=== PATIENT | female | born 1985 | race Caucasian/White ===

== ENCOUNTER 2019-10-21 06:48 | Day surgery (SDC) | payer BC ==
[2019-10-21] MEDS ORDERED: Lactated Ringers 1,000 ML IV SCH (07:00)
[2019-10-21] MEDS ORDERED: Doxycycline 100 MG Cap PO SCH (07:00)
[2019-10-21] MEDS ORDERED: Lidocaine 1%/Sod Bicarbonate in NS 8.4% 1 ML Syringe IDERM PRN (07:00)
[2019-10-21] MEDS ORDERED: Sodium Chloride 0.9% 10 ML Syringe FLUSH PRN (07:00)
--- NOTE | 2019-10-21 07:21 | PCM.PREANE ---
Preanesthetic Assessment - Procedure Proposed Procedure: suctin d and c - Anesthesia/Transfusion/Family Hx Anesthesia History: Prior Anesthesia Without Reaction Family History of Anesthesia Reaction: No Transfusion History: No Prior Transfusion(s) - Review of Systems General: No Symptoms Pulmonary: No Symptoms Cardiovascular: No Symptoms Gastrointestinal: Abdominal Pain (weeks) Neurological: No Symptoms Other: Reports: None - Physical Assessment NPO Status Date: 10/20/19 NPO Status Time: 22:00 Vital Signs: Last Vital Signs Temp 98.4 F 10/21/19 07:00 Pulse 61 10/21/19 07:00 Resp 16 10/21/19 07:00 BP 106/62 10/21/19 07:00 Pulse Ox 99 10/21/19 07:00 Height: 5 ft 7 in Weight: 57.153 kg ASA Class: 1 Mental Status: Alert & Oriented x3 Airway Class: Mallampati = 1 Dentition: Reports: Normal Dentition Thyro-Mental Finger Breadths: 3 Mouth Opening Finger Breadths: 3 ROM/Head Extension: Full Lungs: Clear to Auscultation, Normal Respiratory Effort Cardiovascular: Regular Rate, Regular Rhythm - Lab Values: Laboratory Last Values Urine Color Yellow (Yellow) 10/21/19 06:50 Urine Appearance Clear (Clear) 10/21/19 06:50 Urine pH 7.0 (5.0-8.0) 10/21/19 06:50 Ur Specific Fisher 1.025 (1.005-1.030) 10/21/19 06:50 Urine Protein Negative (Negative) 10/21/19 06:50 Urine Glucose (UA) Negative (Negative) 10/21/19 06:50 Urine Ketones Negative (Negative) 10/21/19 06:50 Urine Occult Blood Negative (Negative) 10/21/19 06:50 Urine Nitrite Negative (Negative) 10/21/19 06:50 Urine Bilirubin Negative (Negative) 10/21/19 06:50 Urine Urobilinogen 0.2 (0.2-1.0) 10/21/19 06:50 Ur Leukocyte Esterase Negative (Negative) 10/21/19 06:50 SARS Virus RNA (PCR) Negative (NEGATIVE) 10/20/19 14:08 - Allergies Allergies/Adverse Reactions: Allergies Allergy/AdvReac Type Severity Reaction Status Date / Time amoxicillin Allergy Hives Verified 10/20/19 15:15 Sulfa (Sulfonamide Allergy Hives Verified 10/20/19 15:15 Antibiotics) - Blood Blood Available: No - Acknowledgements Anesthesia Type Planned: General Anesthesia, MAC Pt an Appropriate Candidate for the Planned Anesthesia: Yes Alternatives and Risks of Anesthesia Discussed w Pt/Guardian: Yes Pt/Guardian Understands and Agrees with Anesthesia Plan: Yes PreAnesthesia Questionnaire - Past Health History Medical/Surgical History: Denies Medical/Surgical History HEENT History: Reports: None Cardiovascular History: Reports: Other (See Below) (heart palpitations as a child- all negative) Respiratory History: Reports: None 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 [No Known Home Meds] 10/20/19 [History] - CURRENT (IN HOUSE) MEDS Current Meds: Current Medications Doxycycline Hyclate (Vibramycin) 200 mg PO ONETIME KELSY Stop: 10/21/19 09:00 Last Admin: 10/21/19 06:52 Dose: 200 mg Documented by: Lactated Ringer's (Ringers, Lactated) 1,000 mls @ 125 mls/hr IV ASDIRECTED KELSY Stop: 10/21/19 23:00 Lidocaine/Sodium Bicarbonate (Buffered Lidocaine 1% In Ns 8.4%) 0.25 ml IDERM ONETIME PRN PRN Reason: Prior to IV Start Stop: 10/21/19 18:00 Sodium Chloride (Saline Flush) 10 ml FLUSH ASDIRECTED PRN PRN Reason: Keep Vein Open Stop: 10/21/19 18:00
[2019-10-21] MEDS ORDERED: Midazolam 1 MG/ML 2 ML SDV ONE (07:28)
[2019-10-21] MEDS ORDERED: fentaNYL 100 MCG/2 ML SDV ONE (07:28)
[2019-10-21] MEDS ORDERED: Propofol 200 MG/20 ML SDV ONE (07:28)
[2019-10-21] MEDS ORDERED: Lidocaine 1% 4 ML ONE (07:28)
[2019-10-21] MEDS ORDERED: Ketamine 500 mg/10 ML MDV ONE (07:40)
[2019-10-21] MEDS ORDERED: Ondansetron 4 MG/2 ML SDV ONE (07:51)
[2019-10-21] MEDS ORDERED: Succinylcholine/Sod PF 100 MG/5 ML SYRINGE IV ONE (08:04)
[2019-10-21] MEDS ORDERED: Dexamethasone 4 MG/ML 5 ML MDV ONE (08:12)
[2019-10-21] MEDS ORDERED: Lactated Ringers 1,000 ML ONE (08:18)
[2019-10-21] MEDS ORDERED: Ketorolac 30 MG/ML SDV ONE (08:25)
[2019-10-21] MEDS ORDERED: Methylergonovine 0.2 MG/1 ML Amp ONE (08:27)
[2019-10-21] MEDS ORDERED: fentaNYL 100 MCG/2 ML SDV IVPUSH PRN (08:51)
[2019-10-21] MEDS ORDERED: HYDROmorphone 0.5 MG/0.5 ML Syringe IVPUSH PRN (08:51)
[2019-10-21] MEDS ORDERED: Ondansetron 4 MG/2 ML SDV IVPUSH PRN (08:51)
--- NOTE | 2019-10-21 08:52 | PCM.POSTAN ---
POST ANESTHESIA ASSESSMENT - MENTAL STATUS Mental Status: Alert, Oriented - VITAL SIGNS Vital Signs: Last Vital Signs Temp 98.4 F 10/21/19 07:00 Pulse 61 10/21/19 07:00 Resp 16 10/21/19 07:00 BP 106/62 10/21/19 07:00 Pulse Ox 99 10/21/19 07:00 0846 78 18 97.6 112/73 99% - RESPIRATORY Respiratory Status: Respiratory Rate WNL, Airway Patent, O2 Saturation Stable, Supplemental Oxygen - CARDIOVASCULAR CV Status: Pulse Rate WNL, Blood Pressure Stable - GASTROINTESTINAL GI Status: No Symptoms - PAIN Pain Score: 0 - POST OP HYDRATION Hydration Status: Adequate & Stable
--- NOTE | 2019-10-21 08:59 | PCM.OPNOTE ---
- General Post-Op/Procedure Note Date of Surgery/Procedure: 10/21/19 Operative Procedure(s): Suction dilation and curettage Findings: Grossly normal-appearing cervix with uterus enlarged to 7 weeks size. Right adnexal cyst measuring approximately 5 to 6 cm on exam. Pre Op Diagnosis: Missed with anembryonic gestation Post-Op Diagnosis: Same Anesthesia Technique: General ET Tube Primary Surgeon: Alok Velasco Secondary Surgeon: Slade Whitaker Pathology: Products of conception Fluid Replacement, Intraop: 1,100 Output, Urine Amount: 0 (voided prior to procedure) EBL in mLs: 100 Complications: None Condition: Good Free Text/Narrative:: Procedure in Detail: Patient was counseled on risks, benefits and alternatives of the procedure and consents were reviewed prior to going back to the OR. She was given 200 mg of doxycycline for antibiotic prophylaxis. She was taken back to the OR and given general anesthesia with endotracheal tube that was placed without difficulty. She was placed in dorsal lithotomy position using [place] stirrups. She was prepped and draped in a normal sterile fashion. A weighted speculum was placed in the vagina and the cervix was visualized with use of a right angle retractor. The anterior lip of the cervix was grasped with a single tooth tenaculum. The cervix was serially dilated to a 23 Ur[place] dilator. The vacuum was tested and reached an appropriate suction level. A 8 mm suction curettage was then placed into the uterine cavity and suction applied. The uterine cavity was suctioned circumferentially until a good cri was felt in all directions. The tissue that was removed was sent to pathology. The procedure was complete at this time and the tenaculum was removed from the cervix and good hemostasis was noted from the tenaculum sites. All instruments were removed from the vagina. All needle and sponge counts were correct x 2. The patient was awoken and taken back to the recovery room in stable condition. She will be discharged home with methergine for uterine tone. The patient will be discharged home when she is ambulating, tolerating PO, pain is well controlled with PO medications and she is voiding normally. She will follow up in the clinic within the next 2-3 weeks. She was given strict precautions to return if she is having severe vaginal bleeding of more than 1 pad per hour for three hours, uncontrollable pain/ nausea/vomiting or if she is having a fever greater than 100.4 Arianna Velasco MD 8:58 AM 10/21/2019
--- NOTE | 2019-10-21 09:35 | PCM48HPAN ---
Post Anesthesia Note - EVALUATION WITHIN 48HRS OF ANESTHETIC Vital Signs in Normal Range: Yes Patient Participated in Evaluation: Yes Respiratory Function Stable: Yes Airway Patent: Yes Cardiovascular Function Stable: Yes Hydration Status Stable: Yes Pain Control Satisfactory: Yes Nausea and Vomiting Control Satisfactory: Yes Mental Status Recovered: Yes (no complaints) Vital Signs: Last Vital Signs Temp 98.5 F 10/21/19 09:15 Pulse 67 10/21/19 09:15 Resp 14 10/21/19 09:15 BP 110/63 10/21/19 09:15 Pulse Ox 97 10/21/19 09:15
== END 2019-10-21 10:33 | disposition home or self-care (01) ==
LOC: JD.SDS 06:48
PROVIDERS: ATTEND Obstetrics & Gynecology
DX: O02.0 Blighted ovum and nonhydatidiform mole (principal); N83.8 Other noninflammatory disorders of ovary, fallopian tube and broad ligament; Z88.0 Allergy status to penicillin; Z88.2 Allergy status to sulfonamides
CPT/HCPCS: 59820; 81003; 87635; A9270; J0330; J1100; J1885; J2001; J2210; J2250; J2704; J7120; 01965; J2405; J3010; U0002

== ENCOUNTER 2020-09-21 00:12 | Inpatient (IN) | payer BC ==
--- NOTE | 2020-09-21 00:50 | PCM.PREANE ---
Preanesthetic Assessment - Procedure Proposed Procedure: Epidural - Anesthesia/Transfusion/Family Hx Anesthesia History: Prior Anesthesia Without Reaction Family History of Anesthesia Reaction: No Transfusion History: No Prior Transfusion(s) Intubation History: Unknown - Review of Systems General: No Symptoms Pulmonary: No Symptoms Cardiovascular: No Symptoms Gastrointestinal: No Symptoms (GERD), Nausea Neurological: No Symptoms Other: Reports: None - Physical Assessment NPO Status Date: 09/20/20 NPO Status Time: 18:00 Vital Signs: HR: 96 Sat: 99% Temp: 100.9 Resp: 20 B/P: 127/92 Height: 1.71 m Weight: 76.657 kg ASA Class: 2 Mental Status: Alert & Oriented x3 Airway Class: Mallampati = 2 Dentition: Reports: Normal Dentition, [place] Thyro-Mental Finger Breadths: 3 Mouth Opening Finger Breadths: 3 ROM/Head Extension: Full Lungs: Clear to Auscultation, Normal Respiratory Effort Cardiovascular: Regular Rate, Regular Rhythm, No Murmurs - Lab Values: All labs reviewed and noted and within acceptable ranges to proceed with ep idural if desired. - Allergies Allergies/Adverse Reactions: Allergies Allergy/AdvReac Type Severity Reaction Status Date / Time amoxicillin Allergy Hives Verified 09/21/20 00:21 Sulfa (Sulfonamide Allergy Hives Verified 09/21/20 00:21 Antibiotics) - Anesthesia Plan Pre-Op Medication Ordered: None - Acknowledgements Anesthesia Type Planned: Epidural Pt an Appropriate Candidate for the Planned Anesthesia: Yes Alternatives and Risks of Anesthesia Discussed w Pt/Guardian: Yes Pt/Guardian Understands and Agrees with Anesthesia Plan: Yes PreAnesthesia Questionnaire - Past Health History Medical/Surgical History: Denies Medical/Surgical History HEENT History: Reports: None Cardiovascular History: Reports: Other (See Below) (heart palpitations as a child- all negative) Respiratory History: Reports: None 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
[2020-09-21] MEDS ORDERED: Nalbuphine 10 MG/1 ML Vial IVPUSH PRN (00:56)
[2020-09-21] MEDS ORDERED: Calcium Carbonate 500 MG Tab.Chew PO PRN ×2 (00:56→11:43)
[2020-09-21] MEDS ORDERED: Acetaminophen 325 MG Tab PO PRN ×2 (00:56→20:01)
[2020-09-21] MEDS ORDERED: Sodium Chloride 0.9% 10 ML Syringe FLUSH PRN (00:56)
[2020-09-21] MEDS ORDERED: fentaNYL 100 MCG/2 ML SDV EPIDUR PRN (01:00)
[2020-09-21] MEDS ORDERED: Oxytocin/Lactated Ringers 10 UNIT/1,000 ML BAG IV SCH ×3 (01:00→20:01)
[2020-09-21] MEDS ORDERED: ePHEDrine 50 MG/ML SDV IVPUSH PRN (01:00)
[2020-09-21] MEDS ORDERED: Ondansetron 4 MG/2 ML SDV IVPUSH PRN (01:00)
[2020-09-21] MEDS: Lactated Ringers 1,000 ML IV SCH ×4 (04:47→10:56)
--- NOTE | 2020-09-21 05:57 | PCM.LDHP ---
L&D History of Present Illness - General Date of Service: 09/21/20 Admit Problem/Dx: Patient Status Order with Admit Dx/Problem 09/21/20 00:21 Patient Status [ADT] Routine 09/21/20 00:56 Patient Status [ADT] Routine Admission Diagnosis/Problem Admission Diagnosis/Problem - History of Present Illness Introduction:: 34 year old female at 40w3 by LMP cw 1st trimester ultrasound presented for SROM clear fluid at 10pm. PNC with Dr. Velasco complicated by a posterior fibroid, abnormal one hour with normal three hour Labs reviewed and on chart on . A+/Imm/GBS neg - Related Data Allergies/Adverse Reactions: Allergies Allergy/AdvReac Type Severity Reaction Status Date / Time amoxicillin Allergy Hives Verified 09/21/20 00:21 Sulfa (Sulfonamide Allergy Hives Verified 09/21/20 00:21 Antibiotics) Home Medications: Home Meds Ondansetron [Zofran ODT] 4 mg PO Q6H PRN #30 tab.dis 10/21/19 [Rx] Comb No.42/Folic Acid [Prena1 Chew Tablet] 1 piece CHEW DAILY 09/21/20 [History] Past Medical History - Past Health History Medical/Surgical History: Denies Medical/Surgical History HEENT History: Reports: None Cardiovascular History: Reports: Other (See Below) Respiratory History: Reports: None 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: , Spontaneous Oncologic (Cancer) History: Reports: None - Past Surgical History HEENT Surgical History: Reports: Oral Surgery Social & Family History - Family History Family Medical History: No Pertinent Family History - Tobacco Use Tobacco Use Status *Q: Never Tobacco User Second Hand Smoke Exposure: No - Caffeine Use Caffeine Use: Reports: Tea - Recreational Drug Use Recreational Drug Use: No H&P Review of Systems - Review of Systems: Review Of Systems: See Below General: Reports: No Symptoms HEENT: Reports: No Symptoms Pulmonary: Reports: No Symptoms Cardiovascular: Reports: No Symptoms Gastrointestinal: Reports: No Symptoms Genitourinary: Reports: No Symptoms Musculoskeletal: Reports: No Symptoms Skin: Reports: No Symptoms Psychiatric: Reports: No Symptoms Neurological: Reports: No Symptoms Hematologic/Lymphatic: Reports: No Symptoms Immunologic: Reports: No Symptoms L&D Exam - Exam Exam: See Below - Vital Signs Vital Signs: Last Vital Signs Temp 36.4 C 09/21/20 03:17 Pulse 87 09/21/20 03:17 Resp 16 09/21/20 03:17 BP 129/80 09/21/20 03:17 Pulse Ox 100 09/21/20 03:17 Weight: 76.657 kg - OB Specific Contraction Intensity: Mild to Moderate Presentation: Vertex - Sood Score Sood Score Cervix Position: Anterior Sood Score Effacement: >80% Sood Score Dilation: 3-4 cm Sood Score Infant's Station: +1, +2 - Exam General: Alert, Oriented HEENT: PERRLA, Conjunctiva Clear, EACs Clear, EOMI, Hearing Intact, Mucosa Moist & [place], Nares Patent, Normal Nasal Septum, Posterior Pharynx Clear, TMs Clear Neck: Trachea Midline Lungs: Normal Respiratory Effort Cardiovascular: Regular Rate, Regular Rhythm GI/Abdominal Exam: Normal Bowel Sounds, Soft, Non-Tender, No Organomegaly, No D istention Back Exam: Normal Inspection, Full Range of Motion Extremities: Normal Inspection, Normal Range of Motion, Non-Tender, No Pedal Edema, Normal Capillary Refill Skin: Warm, Dry, Intact Neurological: Cranial Nerves Intact, Reflexes Equal Bilateral Psychiatric: Alert, Normal Affect, Normal Mood - Patient Data Lab Results Last 24 hrs: Laboratory Results - last 24 hr 09/21/20 09/21/20 09/21/20 Range/Units 01:30 01:59 01:59 WBC 16.54 H (3.98-10.04) K/mm3 RBC 4.17 (3.98-5.22) M/mm3 Hgb 12.6 (11.2-15.7) gm/dl Hct 37.9 (34.1-44.9) % MCV 90.9 (79.4-94.8) fl MCH 30.2 (25.6-32.2) pg MCHC 33.2 (32.2-35.5) g/dl RDW Std Deviation 42.4 (36.4-46.3) fL Plt Count 198 (182-369) K/mm3 MPV 10.9 (9.4-12.3) fl Neut % (Auto) 85.9 H (34.0-71.1) % Lymph % (Auto) 8.0 L (19.3-51.7) % [place] % (Auto) 5.6 (4.7-12.5) % Eos % (Auto) 0.2 L (0.7-5.8) Baso % (Auto) 0.1 (0.1-1.2) % Neut # (Auto) 14.20 H (1.56-6.13) K/mm3 Lymph # (Auto) 1.33 (1.18-3.74) K/mm3 [place] # (Auto) 0.92 H (0.24-0.36) K/mm3 Eos # (Auto) 0.03 L (0.04-0.36) K/mm3 Baso # (Auto) 0.02 (0.01-0.08) K/mm3 Manual Slide Review Abnormal smear SARS-CoV-2 RNA (EDIE) Negative (NEGATIVE) Blood Type A POSITIVE Gel Antibody Screen Negative Result Diagrams: 09/21/20 01:59 Problem List Initiated/Reviewed/Updated: Yes Orders Last 24hrs: Active Orders 24 hr Category Date Time Status Patient Status [ADT] Routine ADT 09/21/20 00:21 Active Patient Status [ADT] Routine ADT 09/21/20 00:56 Active Activity as Tolerated [RC] PFP Care 09/21/20 00:56 Active Communication Order [RC] ASDIRECTED Care 09/21/20 00:56 Active Heart Tones [RC] ASDIRECTED Care 09/21/20 00:57 Active Non Stress Test [RC] PER UNIT ROUTINE Care 09/21/20 00:21 Active Non Stress Test [RC] PER UNIT ROUTINE Care 09/21/20 00:56 Active Notify Provider [RC] ASDIRECTED Care 09/21/20 01:00 Active Notify Provider [RC] PFP Care 09/21/20 00:56 Active Notify Provider [RC] PRN Care 09/21/20 00:56 Active Oxygen Therapy [RC] ASDIRECTED Care 09/21/20 01:00 Active Peripheral IV Care [RC] . DIRECTED Care 09/21/20 00:57 Active Pulse Oximetry [RC] ASDIRECTED Care 09/21/20 01:00 Active Vital Signs [RC] PER UNIT ROUTINE Care 09/21/20 00:21 Active Vital Signs [RC] PER UNIT ROUTINE Care 09/21/20 00:56 Active AMNISURE RUPTURE MEMBRAN [BF] Stat Lab 09/21/20 00:21 Ordered HEPATITIS C ANTIBODY [CHEM] Stat Lab 09/21/20 01:59 Received RAPID PLASMA REAGIN,RPR [CHEM] Routine Lab 09/21/20 01:59 Received Acetaminophen [TylenoL] Med 09/21/20 00:56 Active 650 mg PO Q4H PRN Bupivacaine/fentaNYL/NS [fentaNYL/Bupivacaine/NS 2 MCG- Med 09/21/20 01:00 Active 0.125% 100 ML] 100 ml EPIDUR ASDIRECTED Calcium Carbonate [Tums] Med 09/21/20 00:56 Active 1,000 mg PO Q2H PRN Lactated Ringers [Ringers, Lactated] 1,000 ml Med 09/21/20 01:00 Active IV ASDIRECTED Nalbuphine [Nubain] Med 09/21/20 00:56 Active 10 mg IVPUSH Q2H PRN Ondansetron [Zofran] Med 09/21/20 01:00 Active 4 mg IVPUSH ONETIME PRN Oxytocin/Lactated Ringers [Pitocin in LR 10 Units/1,000 Med 09/21/20 01:00 Active ML] 10 unit in 1,000 ml IV .CONTINUOUS Oxytocin/Lactated Ringers [Pitocin in LR 10 Units/1,000 Med 09/21/20 01:00 Active ML] 10 unit in 1,000 ml IV TITRATE Phenylephrine HCl In 0.9% NaCl [Phenylephrine 1 MG/10 Med 09/21/20 01:00 Active ML-NS] 0.1 mg IVPUSH Q10M PRN Sodium Chloride 0.9% [Saline Flush] Med 09/21/20 00:56 Active 10 ml FLUSH ASDIRECTED PRN ePHEDrine [ePHEDrine sulfate] Med 09/21/20 01:00 Active 5 mg IVPUSH ASDIRECTED PRN fentaNYL [Sublimaze] Med 09/21/20 01:00 Active 100 mcg EPIDUR Q3H PRN Electronic Heart Tones Ext w TOCO [WOMSER] Ot 09/21/20 00:56 Ordered Routine Electronic Heart Tones Internal [WOMSER] Per Unit Ot 09/21/20 00:56 Ordered Routine Peripheral IV Insertion Adult [OM.PC] Routine Oth 09/21/20 00:56 Ordered Resuscitation Status Routine Resus Stat 09/21/20 00:56 Ordered Medication Orders Acetaminophen (Acetaminophen 325 Mg Tab) 650 mg PO Q4H PRN PRN Reason: Pain (Mild 1-3) and fever Calcium Carbonate/Glycine (Calcium Carbonate 500 Mg Tab.Chew) 1,000 mg PO Q2H PRN PRN Reason: Indigestion Ephedrine Sulfate (Ephedrine 50 Mg/Ml Sdv) 5 mg IVPUSH ASDIRECTED PRN PRN Reason: Hypotension Fentanyl (Fentanyl 100 Mcg/2 Ml Sdv) 100 mcg EPIDUR Q3H PRN PRN Reason: Pain Fentanyl/Bupivacaine HCl (Bupivacaine/Fentanyl/Ns 100 Ml Bag) 100 ml EPIDUR ASDIRECTED KELSY Lactated Ringer's (Ringers, Lactated) 1,000 mls @ 100 mls/hr IV ASDIRECTED KELSY Last Admin: 09/21/20 04:47 Dose: 100 mls/hr Documented by: DEMAR Oxytocin/Lactated Ringer's (Pitocin In Lr 10 Units/1,000 Ml) 10 unit in 1,000 mls @ 500 mls/hr IV .CONTINUOUS KELSY Oxytocin/Lactated Ringer's (Pitocin In Lr 10 Units/1,000 Ml) 10 unit in 1,000 mls @ 12 mls/hr IV TITRATE KELSY; Protocol Last Titration: 09/21/20 05:20 Dose: 4 munits/min, 24 mls/hr Documented by: Admin: 09/21/20 04:47 Dose: 2 munits/min, 12 mls/hr Documented by: DEMAR Miscellaneous Medication (Phenylephrine Hcl In 0.9% Nacl 1 Mg/10 Ml Syringe) 0.1 mg IVPUSH Q10M PRN PRN Reason: Hypotension Nalbuphine HCl (Nalbuphine 10 Mg/1 Ml Vial) 10 mg IVPUSH Q2H PRN PRN Reason: Pain Ondansetron HCl (Ondansetron 4 Mg/2 Ml Sdv) 4 mg IVPUSH ONETIME PRN PRN Reason: Nausea/Vomiting Sodium Chloride (Sodium Chloride 0.9% 10 Ml Syringe) 10 ml FLUSH ASDIRECTED PRN PRN Reason: Keep Vein Open Assessment/Plan Comment:: Term SROM. Pitocin, epidural prn. Labs pending. Anticipate . Discussed with Dr. Velasco who is global head advertiser solutions now and will assume care.
[2020-09-21] MEDS: Bupivacaine/fentaNYL/NS 100 ML Bag EPIDUR SCH ×2 (07:41→16:26)
[2020-09-21] MEDS ORDERED: ceFAZolin 2 GM in Premix Bag 1 BAG IV ONE (12:58)
--- NOTE | 2020-09-21 13:37 | PCM.PNLD ---
Labor Progress Note - VS & Meds Vital Signs: Last Vital Signs Temp 36.4 C 09/21/20 03:17 Pulse 87 09/21/20 03:17 Resp 16 09/21/20 03:17 BP 129/80 09/21/20 03:17 Pulse Ox 100 09/21/20 03:17 Active Medications: Current Medications Acetaminophen (Acetaminophen 325 Mg Tab) 650 mg PO Q4H PRN PRN Reason: Pain (Mild 1-3) and fever Calcium Carbonate/Glycine (Calcium Carbonate 500 Mg Tab.Chew) 1,000 mg PO Q2H PRN PRN Reason: Indigestion Last Admin: 09/21/20 11:55 Dose: 1,000 mg Documented by: Ephedrine Sulfate (Ephedrine 50 Mg/Ml Sdv) 5 mg IVPUSH ASDIRECTED PRN PRN Reason: Hypotension Fentanyl (Fentanyl 100 Mcg/2 Ml Sdv) 100 mcg EPIDUR Q3H PRN PRN Reason: Pain Last Admin: 09/21/20 07:40 Dose: 100 mcg Documented by: Fentanyl/Bupivacaine HCl (Bupivacaine/Fentanyl/Ns 100 Ml Bag) 100 ml EPIDUR ASDIRECTED KELSY Last Admin: 09/21/20 07:41 Dose: 100 ml Documented by: Lactated Ringer's (Ringers, Lactated) 1,000 mls @ 100 mls/hr IV ASDIRECTED KELSY Last Admin: 09/21/20 10:56 Dose: 100 mls/hr Documented by: Oxytocin/Lactated Ringer's (Pitocin In Lr 10 Units/1,000 Ml) 10 unit in 1,000 mls @ 500 mls/hr IV .CONTINUOUS KELSY Oxytocin/Lactated Ringer's (Pitocin In Lr 10 Units/1,000 Ml) 10 unit in 1,000 mls @ 12 mls/hr IV TITRATE KELSY; Protocol Last Titration: 09/21/20 11:08 Dose: 3 munits/min, 18 mls/hr Documented by: Gentamicin Sulfate 380 mg/ (Sodium Chloride) 109.5 mls @ 109.5 mls/hr IV ONETIME ONE Stop: 09/21/20 14:29 Miscellaneous Medication (Phenylephrine Hcl In 0.9% Nacl 1 Mg/10 Ml Syringe) 0.1 mg IVPUSH Q10M PRN PRN Reason: Hypotension Nalbuphine HCl (Nalbuphine 10 Mg/1 Ml Vial) 10 mg IVPUSH Q2H PRN PRN Reason: Pain Ondansetron HCl (Ondansetron 4 Mg/2 Ml Sdv) 4 mg IVPUSH ONETIME PRN PRN Reason: Nausea/Vomiting Last Admin: 09/21/20 11:55 Dose: 4 mg Documented by: Sodium Chloride (Sodium Chloride 0.9% 10 Ml Syringe) 10 ml FLUSH ASDIRECTED PRN PRN Reason: Keep Vein Open Discontinued Medications Gentamicin Sulfate (Pharmacy To Dose - Gentamicin) 1 dose .XX ASDIRECTED ONE Stop: 09/21/20 13:31 Cefazolin Sodium/Dextrose 2 gm (/ Premix) 50 mls @ 100 mls/hr IV ONETIME ONE Stop: 09/21/20 13:27 Last Admin: 09/21/20 13:12 Dose: 100 mls/hr Documented by: - Uterine Contractions Uterine Monitoring Mode: External [place] Contraction Frequency (min): 5-7 Contraction Duration (sec): 60-75 Contraction Intensity: Moderate Uterine Resting Tone: Soft - Monitoring Monitor Mode: Doppler/Auscultation Heart Rate (FHR) Baseline: 150 Heart Rate (FHR) Per Doppler: 150 Heart Rate (FHR) Variability: Moderate (6-25 bmp) Accelerations: Present, 15x15 Decelerations: Late (recurrent while laying on back, improved on hands and knees) Strip Review: Category II - Vaginal Exam Dilation (cm): 5 Effacement (Percent): 90 Station: 0 Cervical Position: Anterior Sterile Vaginal Exam Performed By: Alok Velasco - Labor Progress (Free Text) Labor Progress: Kayla Chase is a 34-year-old -0-1-0 female at 40 weeks 3 days (ALESHIA 09/18/2020) with spontaneous rupture of membranes and new onset maternal fever with temperature of 100.9 F and increase in heart rate to 150s and maternal tachycardia and suspected chorioamnionitis * Start patient on Ancef 2 g IV every 8 hours and gentamicin 5 mg/kg every 24 hours for treatment of chorioamnionitis. We will continue this until time of delivery. Give patient test dose of Ancef prior to full dosing of Ancef given history of hives with amoxicillin as a child. * Continue Pitocin for augmentation of labor, continue increased dose to increase frequency of contractions * Routine vitals * We will plan to recheck cervix in 2 hours to check for change. If no change at that time then we will place a intrauterine pressure catheter to more closely monitor contractions and strength of contractions * Patient may have small amount of food while in labor * Epidural working well for patient and not having any pain at this time * Anticipate vaginal delivery unless otherwise indicated Alok Velasco MD 1:37 PM 09/13/2020
[2020-09-21] MEDS ORDERED: Bupivacaine 0.25% 10 ML SDV ONE (17:00)
--- NOTE | 2020-09-21 19:08 | PCM.DEL ---
L & D Note - General Info Date of Service: 09/21/20 Mother's Due Date: 09/18/20 - Delivery Note Labor: Spontaneous, Augmented by Oxytocin Delivery Outcome: Livebirth Infant Delivery Method: Spontaneous Vaginal Delivery-Single Presentation: Left Occiput Anterior (JANELLE) Nuchal Cord: None Prep: Povidone-Iodine (Betadine Anesthesia Type: Epidural Amniotic Fluid Description: Clear Episiotomy Type: None Laceration: 2nd Degree (midline perineal, repaired with 3-0 Vicryl), Periurethral (superficial midline, hemostatic and not repaired) Suture type: Vicryl Suture size: 3-0 Placenta: Intact, Spontaneous Cord: 3 Vessels Estimated Blood Loss: 400 Resuscitation Needed: Yes [place]: Suctioned, Bulb Syringe, Stimulated, Warmed, [place] Used, Warmer Used Provider: Praveen Butler Score 1 min: 8 Score 5 min: 9 Second Stage Interventions: Reports: Pushing Effectively, Pushing, Stirrups/Leg Supports Delivery Comments (Free Text/Narrative):: Stage I: Kayla Chase was admitted for spontaneous rupture of membranes. She had a large gush of clear fluid at home with continuous leaking of fluid that continued until she arrived at the hospital. On admission her cervix was dilated to 1 to 2 cm. She was GBS negative. She was started on Pitocin for augmentation of labor with minimal cervical change throughout the evening and night into the next morning. She was given an epidural for anesthesia. She began having some late decelerations and the Pitocin was decreased in the rate and the patient was repositioned resulting in resolution of the decelerations. She developed a fever of 100.9 F with maternal and tachycardia. She was diagnosed with chorioamnionitis and was started on Ancef 2 g and gentamicin 5 mg/kg. After the antibiotics the heart rate returned to previous baseline. She was continued on Pitocin for augmentation of labor and progressed to complete and pushing. Stage II: On 09/21/2020 she had a normal vaginal delivery of a live male at 18:13. Apgars of 8 & 9. Weight of 3170 g (6 lbs 15.8 oz). There was no nuchal cord. was delivered in JANELLE position. The cord was doubly clamped and cut by father the . Infant was placed on mother's abdomen initially and then taken to the warmer for further resuscitation. Stage III: She had a spontaneous delivery of an intact placenta in [place] presentation. Three vessel cord. She was given pitocin and fundal massage. She had a second-degree midline perineal laceration that was repaired with 3-0 Vicryl. She had a superficial midline periurethral laceration that was hemostatic and not repaired. Mom and baby were stable to recovery. EBL of 400 mL. Alok Velasco MD 7:05 PM 09/21/2020 - General Info Date of Service: 09/21/20 - Patient Data Vitals - Most Recent: Last Vital Signs Temp 36.4 C 09/21/20 03:17 Pulse 87 09/21/20 03:17 Resp 16 09/21/20 03:17 BP 129/80 09/21/20 03:17 Pulse Ox 100 09/21/20 03:17 Weight - Most Recent: 76.657 kg I&O - Last 24 Hours: Intake & Output 09/21/20 09/21/20 09/21/20 06:59 14:59 22:59 Intake Total 120 Output Total Balance 136 Lab Results Last 24 Hours: Laboratory Results - last 24 hr 09/21/20 09/21/20 09/21/20 Range/Units 01:30 01:59 01:59 WBC 16.54 H (3.98-10.04) K/mm3 RBC 4.17 (3.98-5.22) M/mm3 Hgb 12.6 (11.2-15.7) gm/dl Hct 37.9 (34.1-44.9) % MCV 90.9 (79.4-94.8) fl MCH 30.2 (25.6-32.2) pg MCHC 33.2 (32.2-35.5) g/dl RDW Std Deviation 42.4 (36.4-46.3) fL Plt Count 198 (182-369) K/mm3 MPV 10.9 (9.4-12.3) fl Neut % (Auto) 85.9 H (34.0-71.1) % Lymph % (Auto) 8.0 L (19.3-51.7) % [place] % (Auto) 5.6 (4.7-12.5) % Eos % (Auto) 0.2 L (0.7-5.8) Baso % (Auto) 0.1 (0.1-1.2) % Neut # (Auto) 14.20 H (1.56-6.13) K/mm3 Lymph # (Auto) 1.33 (1.18-3.74) K/mm3 [place] # (Auto) 0.92 H (0.24-0.36) K/mm3 Eos # (Auto) 0.03 L (0.04-0.36) K/mm3 Baso # (Auto) 0.02 (0.01-0.08) K/mm3 Manual Slide Review Abnormal smear SARS-CoV-2 RNA (EDIE) Negative (NEGATIVE) Blood Type A POSITIVE Gel Antibody Screen Negative Med Orders - Current: Current Medications Acetaminophen (Acetaminophen 325 Mg Tab) 650 mg PO Q4H PRN PRN Reason: Pain (Mild 1-3) and fever Calcium Carbonate/Glycine (Calcium Carbonate 500 Mg Tab.Chew) 1,000 mg PO Q2H PRN PRN Reason: Indigestion Last Admin: 09/21/20 11:55 Dose: 1,000 mg Documented by: Ephedrine Sulfate (Ephedrine 50 Mg/Ml Sdv) 5 mg IVPUSH ASDIRECTED PRN PRN Reason: Hypotension Last Admin: 09/21/20 14:15 Dose: 5 mg Documented by: Fentanyl (Fentanyl 100 Mcg/2 Ml Sdv) 100 mcg EPIDUR Q3H PRN PRN Reason: Pain Last Admin: 09/21/20 07:40 Dose: 100 mcg Documented by: Fentanyl/Bupivacaine HCl (Bupivacaine/Fentanyl/Ns 100 Ml Bag) 100 ml EPIDUR ASDIRECTED KELSY Last Admin: 09/21/20 16:26 Dose: 100 ml Documented by: Lactated Ringer's (Ringers, Lactated) 1,000 mls @ 100 mls/hr IV ASDIRECTED KELSY Last Admin: 09/21/20 10:56 Dose: 100 mls/hr Documented by: Oxytocin/Lactated Ringer's (Pitocin In Lr 10 Units/1,000 Ml) 10 unit in 1,000 mls @ 500 mls/hr IV .CONTINUOUS KELSY Oxytocin/Lactated Ringer's (Pitocin In Lr 10 Units/1,000 Ml) 10 unit in 1,000 mls @ 12 mls/hr IV TITRATE KELSY; Protocol Last Titration: 09/21/20 15:45 Dose: 11 munits/min, 66 mls/hr Documented by: Miscellaneous Medication (Phenylephrine Hcl In 0.9% Nacl 1 Mg/10 Ml Syringe) 0.1 mg IVPUSH Q10M PRN PRN Reason: Hypotension Nalbuphine HCl (Nalbuphine 10 Mg/1 Ml Vial) 10 mg IVPUSH Q2H PRN PRN Reason: Pain Ondansetron HCl (Ondansetron 4 Mg/2 Ml Sdv) 4 mg IVPUSH ONETIME PRN PRN Reason: Nausea/Vomiting Last Admin: 09/21/20 11:55 Dose: 4 mg Documented by: Sodium Chloride (Sodium Chloride 0.9% 10 Ml Syringe) 10 ml FLUSH ASDIRECTED PRN PRN Reason: Keep Vein Open Discontinued Medications Gentamicin Sulfate (Pharmacy To Dose - Gentamicin) 1 dose .XX ASDIRECTED ONE Stop: 09/21/20 13:31 Cefazolin Sodium/Dextrose 2 gm (/ Premix) 50 mls @ 100 mls/hr IV ONETIME ONE Stop: 09/21/20 13:27 Last Admin: 09/21/20 13:12 Dose: 100 mls/hr Documented by: Gentamicin Sulfate 380 mg/ (Sodium Chloride) 109.5 mls @ 109.5 mls/hr IV ONETIME ONE Stop: 09/21/20 14:29 Last Admin: 09/21/20 13:57 Dose: 109.5 mls/hr Documented by: - Exam Urinary Catheter Total Time: 0Days 0Hours - Problem List & Annotations (1) 40 weeks gestation of SNOMED Code(s): 19276954 Code(s): Z3A.40 - 40 WEEKS GESTATION OF Status: Acute Current Visit: Yes (2) Chorioamnionitis in third trimester SNOMED Code(s): 07808494, 93187857 Code(s): O41.1230 - CHORIOAMNIONITIS, THIRD TRIMESTER, NOT APPLICABLE OR UNSP Status: Acute Current Visit: Yes (3) Vaginal delivery SNOMED Code(s): 318279830 Code(s): O80 - ENCOUNTER FOR FULL-TERM UNCOMPLICATED DELIVERY Status: Acute Current Visit: Yes (4) Second degree perineal laceration during delivery SNOMED Code(s): 9670612 Code(s): O70.1 - SECOND DEGREE PERINEAL LACERATION DURING DELIVERY Status: Acute Current Visit: Yes - Problem List Review Problem List Initiated/Reviewed/Updated: Yes - My Orders Last 24 Hours: My Active Orders 09/21/20 18:53 Patient Status Manage Transfer [TRANSFER] Routine - Plan Plan:: Kayla Chase is a G2 now P1 011 female status post , PPD #0, complicated by chorioamnionitis during labor and treated with Ancef and gentamicin and elevated 1 hour glucose tolerance test with normal 3-hour glucose tolerance test Admit to inpatient following normal spontaneous vaginal delivery Continue Pitocin per unit protocol following delivery of placenta and lactated Ringer's until tolerating regular diet Regular diet Vitals per unit routine Ibuprofen and Tylenol for pain control Assist with breast-feeding as needed Continue to monitor lochia Monitor vital signs for any evidence of ongoing infection. Do not need to continue with antibiotics at this time for chorioamnionitis with vaginal delivery. Anticipate discharge home on day #2 Alok Velasco MD 7:05 PM
[2020-09-21] MEDS ORDERED: Magnesium Hydroxide 400 MG/5 ML Susp 30 ML Cup PO PRN (20:01)
[2020-09-21] MEDS ORDERED: Benzocaine/Menthol 20%-0.5% Spray 56 GM Canister TOP PRN (20:01)
[2020-09-21] MEDS ORDERED: Hydrocortisone Acetate 25 MG Supp RECTAL PRN (20:01)
[2020-09-21] MEDS: Ibuprofen 600 MG Tab PO PRN (20:30)
[2020-09-21] MEDS: Docusate Sodium 100 MG Cap PO PRN (20:30)
[2020-09-21] MEDS: Witch Hazel Medicated Pads 40/Jar TOP PRN ×2 (22:55→22:56)
[2020-09-22] MEDS: Docusate Sodium 100 MG Cap PO PRN ×2 (06:23→21:12)
[2020-09-22] MEDS: Ibuprofen 600 MG Tab PO PRN ×2 (06:23→18:11)
[2020-09-22] MEDS ORDERED: Prenatal Multivitamin with Calcium/Folic Acid/Iron Tab PO SCH (09:00)
--- NOTE | 2020-09-22 10:28 | PCM48HPAN ---
Post Anesthesia Note - EVALUATION WITHIN 48HRS OF ANESTHETIC Vital Signs in Normal Range: Yes Patient Participated in Evaluation: Yes Respiratory Function Stable: Yes Airway Patent: Yes Cardiovascular Function Stable: Yes Hydration Status Stable: Yes Pain Control Satisfactory: Yes Nausea and Vomiting Control Satisfactory: Yes Mental Status Recovered: Yes Vital Signs: Last Vital Signs Temp 97.3 F 09/22/20 03:23 Pulse 76 09/22/20 03:23 Resp 16 09/21/20 03:17 BP 120/92 H 09/22/20 03:23 Pulse Ox 98 09/22/20 03:23
--- NOTE | 2020-09-22 12:00 | PCM.SN.2 ---
- Free Text/Narrative Note: Post Progress Note PPD #1 Subjective: Doing well overall. Ambulating without difficulty. Lochia minimal. Voiding without difficulty. Tolerating regular diet without nausea or vomiting. Pain controlled with oral medications. Breast-feeding with minimal difficulty. Denies any fevers or chills. Objective: Vitals: Vital Signs - 24 hr 09/22/20 03:23 Temperature 36.3 C Pulse, 76 Peripheral Blood Pressure 120/92 H O2 Sat by Pulse 98 Oximetry Physical Exam General: Alert and oriented, no acute distress Lungs: Clear to auscultation bilaterally Heart: Regular rate and rhythm Abdomen: Soft, minimal appropriate tenderness, non-distended, fundus midline, n ontender, and 1 fingerbreadth below the umbilicus Extremities: No edema in bilateral lower extremities, no calf tenderness bilaterally Laboratory Results - last 24 hr 09/21/20 Range/Units 01:59 RPR Non-reactive (NONREACTIVE) ASSESSMENT: 34-year-old female -0-1-1 s/p normal vaginal delivery PPD #1, complicated by chorioamnionitis in labor and treated with Ancef and gentamicin and elevated 1 hour glucose tolerance test with normal 3-hour glucose tolerance test PLAN: Doing well Breast-feeding with minimal difficulty. Assist as needed Lochia minimal. Continue to monitor for appropriate lochia. Continue routine care Anticipate discharge home tomorrow for additional monitoring of in the setting of chorioamnionitis in labor Alok Velasco MD 11:59 AM 09/22/2020
[2020-09-23] MEDS: Ibuprofen 600 MG Tab PO PRN (04:53)
--- NOTE | 2020-09-23 11:31 | PCM.SN.2 ---
- Free Text/Narrative Note: Post Progress Note PPD #2 Subjective: Doing well overall. Ambulating without difficulty. Lochia minimal. Voiding without difficulty. Tolerating regular diet without nausea or vomiting. Pain controlled with oral medications. Breast-feeding with minimal difficulty. Denies any fevers or chills. Denies any headaches, vision changes or epigastric pain. Objective: Vitals: Vital Signs - 24 hr 09/22/20 09/22/20 09/23/20 16:04 21:10 03:52 Temperature 36.4 C 36.2 C 36.6 C Pulse, 83 72 76 Peripheral Respiratory 14 13 15 Rate Blood Pressure 117/75 117/96 H 130/91 H O2 Sat by Pulse 94 L 98 99 Oximetry 09/23/20 10:18 Temperature 36.7 C Pulse, 88 Peripheral Respiratory 14 Rate Blood Pressure 121/80 O2 Sat by Pulse 98 Oximetry Physical Exam General: Alert and oriented, no acute distress Lungs: Clear to auscultation bilaterally Heart: Regular rate and rhythm Abdomen: Soft, minimal appropriate tenderness, non-distended, fundus midline, nontender, and 1 fingerbreadth below the umbilicus Extremities: No edema in bilateral lower extremities, no calf tenderness bilaterally Laboratory Results - last 24 hr 09/21/20 Range/Units 01:59 Hepatitis C Antibody <0.1 (0.0-0.9) s/co ratio ASSESSMENT: 34-year-old female -0-1-1 s/p normal vaginal delivery PPD #2, complicated by chorioamnionitis in labor and treated with Ancef and gentamicin, gestational hypertension and elevated 1 hour glucose tolerance test with normal 3-hour glucose tolerance test PLAN: Doing well Breast-feeding with minimal difficulty. Assist as needed Lochia minimal. Continue to monitor for appropriate lochia. Continue routine care Patient continues to have mild range diastolic blood pressures into the 90s. No headaches, vision changes or epigastric pain. Suspect the patient has mild gestational hypertension in the state. Do not suspect that she has preeclampsia with severe features. Not plan on treatment at this time. We will have the patient follow-up within 1 week for monitoring of her blood pressures. Discharge home today Alok Velasco MD 11:29 AM 09/23/2020
--- NOTE | 2020-09-23 11:35 | PCM.DCSUM1 ---
Discharge Summary - Hospital Course Free Text/Narrative:: - General Info Date of Service: 09/21/20 Mother's Due Date: 09/18/20 - Delivery Note Labor: Spontaneous, Augmented by Oxytocin Delivery Outcome: Livebirth Infant Delivery Method: Spontaneous Vaginal Delivery-Single Presentation: Left Occiput Anterior (JANELLE) Nuchal Cord: None Prep: Povidone-Iodine (Betadine Anesthesia Type: Epidural Amniotic Fluid Description: Clear Episiotomy Type: None Laceration: 2nd Degree (midline perineal, repaired with 3-0 Vicryl), Periurethral (superficial midline, hemostatic and not repaired) Suture type: Vicryl Suture size: 3-0 Placenta: Intact, Spontaneous Cord: 3 Vessels Estimated Blood Loss: 400 Resuscitation Needed: Yes [place]: Suctioned, Bulb Syringe, Stimulated, Warmed, [place] Used, Warmer Used Provider: Praveen Butler Score 1 min: 8 Score 5 min: 9 Second Stage Interventions: Reports: Pushing Effectively, Pushing, Stirrups/Leg Supports Delivery Comments (Free Text/Narrative):: Stage I: Kayla Chase was admitted for spontaneous rupture of membranes. S he had a large gush of clear fluid at home with continuous leaking of fluid that continued until she arrived at the hospital. On admission her cervix was dilated to 1 to 2 cm. She was GBS negative. She was started on Pitocin for augmentation of labor with minimal cervical change throughout the evening and night into the next morning. She was given an epidural for anesthesia. She began having some late decelerations and the Pitocin was decreased in the rate and the patient was repositioned resulting in resolution of the decelerations. She developed a fever of 100.9 F with maternal and tachycardia. She was diagnosed with chorioamnionitis and was started on Ancef 2 g and gentamicin 5 mg/kg. After the antibiotics the heart rate returned to previous baseline. She was continued on Pitocin for augmentation of labor and progressed to complete and pushing. Stage II: On 09/21/2020 she had a normal vaginal delivery of a live male at 18:13. Apgars of 8 & 9. Weight of 3170 g (6 lbs 15.8 oz). There was no nuchal cord. Infant was delivered in JANELLE position. The cord was doubly clamped and cut by father the . was placed on mother's abdomen initially and then taken to the warmer for further resuscitation. Stage III: She had a spontaneous delivery of an intact placenta in [place] presentation. Three vessel cord. She was given pitocin and fundal massage. She had a second-degree midline perineal laceration that was repaired with 3-0 Vicryl. She had a superficial midline periurethral laceration that was hemostatic and not repaired. Mom and baby were stable to recovery. EBL of 400 mL. Diagnosis: Stroke: No - Discharge Data Discharge Date: 09/23/20 Discharge Disposition: Home, Self-Care 01 Condition: Good - Referral to Home Health Primary Care Physician: Gabriella Hughes MD - Discharge Diagnosis/Problem(s) (1) 40 weeks gestation of SNOMED Code(s): 69097467 ICD Code: Z3A.40 - 40 WEEKS GESTATION OF Status: Acute Current Visit: Yes (2) Chorioamnionitis in third trimester SNOMED Code(s): 25582650, 75502440 ICD Code: O41.1230 - CHORIOAMNIONITIS, THIRD TRIMESTER, NOT APPLICABLE OR UNSP Status: Acute Current Visit: Yes (3) Vaginal delivery SNOMED Code(s): 575379945 ICD Code: O80 - ENCOUNTER FOR FULL-TERM UNCOMPLICATED DELIVERY Status: Acute Current Visit: Yes (4) Second degree perineal laceration during delivery SNOMED Code(s): 1702414 ICD Code: O70.1 - SECOND DEGREE PERINEAL LACERATION DURING DELIVERY Status: Acute Current Visit: Yes (5) Gestational hypertension SNOMED Code(s): 297596418 ICD Code: O13.9 - GESTATIONAL HTN W/O SIGNIFICANT PROTEINURIA, UNSP TRIMESTER Status: Acute Current Visit: Yes - Patient Summary/Data Complications: Chorioamnionitis in labor Consults: None Hospital Course: Kayla Chase was admitted for spontaneous rupture of membranes with clear fluid. On admission her cervix was dilated to 1-2 cm. She was GBS negative. She was given pitocin for augmentation. She was given an epidural for anesthesia. She had some late decelerations and Pitocin was decreased and the patient was repositioned with resolution of the decelerations. She developed a fever of 100.9 F with maternal and tachycardia. She was diagnosed with chorioamnionitis and started on Ancef 2 g and gentamicin 5 mg/kg. heart rate returned to normal baseline after the antibiotics. She progressed to complete and began pushing. On 09/21/2020 she had a normal vaginal delivery of a live male at 18:13. Apgars of 8 and 9. Weight of 3170 g (6 pounds 15.8 ounces). Her course was uneventful. Her pain was well controlled and she had minimal lochia. She was ambulating, tolerating a regular diet and voiding normally. She was breast-feeding with minimal difficulty. She was afebrile and her hematocrit was 37.9 on admission. She desired to be discharged home on the morning of PPD #2. Her blood type is A+. - Patient Instructions Diet: Regular Diet as Tolerated Activity: Apply Ice, As Tolerated Activity, Other: Nothing in the vagina for 6 weeks Driving: May Drive Today Showering/Bathing: May Shower Notify Provider of: Fever, Increased Pain, Swelling and Redness, Drainage, Nausea and/or Vomiting Other/Special Instructions: Please contact your physician's office if you have heavy vaginal bleeding enough to soak a pad in less than an hour for several hours. Monitor for any signs of an infection in the breasts with severe pain or redness of the breast. - Discharge Plan *PRESCRIPTION DRUG MONITORING PROGRAM REVIEWED*: Not Applicable *COPY OF PRESCRIPTION DRUG MONITORING REPORT IN PATIENT LIBERTY: Not Applicable Home Medications: Home Meds Ondansetron [Zofran ODT] 4 mg PO Q6H PRN #30 tab.dis 10/21/19 [Rx] Comb No.42/Folic Acid [Prena1 Chew Tablet] 1 piece CHEW DAILY 09/21/20 [History] Acetaminophen [Tylenol] 650 mg PO Q6H PRN tablet 09/23/20 [Rx] Benzocaine/Menthol [Dermoplast Pain Relief [place]] 1 spray TOP ASDIRECTED PRN canister 09/23/20 [Rx] Docusate Sodium [Colace] 100 mg PO BID PRN cap 09/23/20 [Rx] Hydrocortisone Acetate [Anucort-HC] 25 mg RECTAL BID PRN supp 09/23/20 [Rx] Ibuprofen [Motrin] 600 mg PO Q6H PRN tablet 09/23/20 [Rx] mame Hima [Tucks] 1 pad TOP ASDIRECTED PRN pad 09/23/20 [Rx] Patient Handouts: and Self-Care, [id number], Breast Pumping Tips, [id number], Tips for a Good Latch, Care of a Perineal Tear, Care After Vaginal Delivery Referrals: Alok Velasco MD [Physician] - (Follow-up in 1-2 weeks for routine visit or earlier as needed.) - Discharge Summary/Plan Comment DC Time >30 min.: No - Patient Data Vitals - Most Recent: Last Vital Signs Temp 36.7 C 09/23/20 10:18 Pulse 88 09/23/20 10:18 Resp 14 09/23/20 10:18 BP 121/80 09/23/20 10:18 Pulse Ox 98 09/23/20 10:18 Weight - Most Recent: 76.657 kg I&O - Last 24 hours: Intake & Output 09/22/20 09/23/20 09/23/20 22:59 06:59 14:59 Intake Total 240 Balance 240 Lab Results - Last 24 hrs: Laboratory Results - last 24 hr 09/21/20 Range/Units 01:59 Hepatitis C Antibody <0.1 (0.0-0.9) s/co ratio Med Orders - Current: Current Medications Acetaminophen (Acetaminophen 325 Mg Tab) 650 mg PO Q6H PRN PRN Reason: mild pain or fever Last Admin: 09/22/20 21:12 Dose: 650 mg Documented by: Benzocaine/Menthol (Benzocaine/Menthol 20%-0.5% [place] 56 Gm Canister) 0 gm TOP ASDIRECTED PRN PRN Reason: Perineal Comfort Measure Last Admin: 09/21/20 23:00 Dose: 1 canister Documented by: Docusate Sodium (Docusate Sodium 100 Mg Cap) 100 mg PO BID PRN PRN Reason: Constipation Last Admin: 09/22/20 21:12 Dose: 100 mg Documented by: Hydrocortisone Acetate (Hydrocortisone Acetate 25 Mg Supp) 25 mg RECTAL BID PRN PRN Reason: Hemorrhoid pain Oxytocin/Lactated Ringer's (Pitocin In Lr 10 Units/1,000 Ml) 10 unit in 1,000 mls @ 100 mls/hr IV TITRATE KELSY; Protocol Ibuprofen (Ibuprofen 600 Mg Tab) 600 mg PO Q6H PRN PRN Reason: Mild pain or fever Last Admin: 09/23/20 04:53 Dose: 600 mg Documented by: Magnesium Hydroxide (Magnesium Hydroxide 400 Mg/5 Ml Susp 30 Ml Cup) 30 ml PO BEDTIME PRN PRN Reason: Constipation Prenat Multivit/[place]/Iron/Folic Ac ( Multivitamin With Calcium/Folic Acid/Iron Tab) 1 each PO DAILY [facility] Last Admin: 09/22/20 16:58 Dose: Not Given Documented by: Mame Syed (Mame Syed Medicated Pads 40/Jar) 1 pad TOP ASDIRECTED PRN PRN Reason: Perineal Comfort Measure Last Admin: 09/21/20 22:56 Dose: 1 tub Documented by: Discontinued Medications Acetaminophen (Acetaminophen 325 Mg Tab) 650 mg PO Q4H PRN PRN Reason: Pain (Mild 1-3) and fever Calcium Carbonate/Glycine (Calcium Carbonate 500 Mg Tab.Chew) 1,000 mg PO Q2H PRN PRN Reason: Indigestion Last Admin: 09/21/20 11:55 Dose: 1,000 mg Documented by: Ephedrine Sulfate (Ephedrine 50 Mg/Ml Sdv) 5 mg IVPUSH ASDIRECTED PRN PRN Reason: Hypotension Last Admin: 09/21/20 14:15 Dose: 5 mg Documented by: Fentanyl (Fentanyl 100 Mcg/2 Ml Sdv) 100 mcg EPIDUR Q3H PRN PRN Reason: Pain Last Admin: 09/21/20 07:40 Dose: 100 mcg Documented by: Fentanyl/Bupivacaine HCl (Bupivacaine/Fentanyl/Ns 100 Ml Bag) 100 ml EPIDUR ASDIRECTED [facility] Last Admin: 09/21/20 16:26 Dose: 100 ml Documented by: Gentamicin Sulfate (Pharmacy To Dose - Gentamicin) 1 dose .XX ASDIRECTED ONE Stop: 09/21/20 13:31 Lactated Ringer's (Ringers, Lactated) 1,000 mls @ 100 mls/hr IV ASDIRECTED [facility] Last Admin: 09/21/20 10:56 Dose: 100 mls/hr Documented by: Oxytocin/Lactated Ringer's (Pitocin In Lr 10 Units/1,000 Ml) 10 unit in 1,000 mls @ 500 mls/hr IV .CONTINUOUS [facility] Oxytocin/Lactated Ringer's (Pitocin In Lr 10 Units/1,000 Ml) 10 unit in 1,000 mls @ 12 mls/hr IV TITRATE KELSY; Protocol Last Titration: 09/21/20 15:45 Dose: 11 munits/min, 66 mls/hr Documented by: Cefazolin Sodium/Dextrose 2 gm (/ Premix) 50 mls @ 100 mls/hr IV ONETIME ONE Stop: 09/21/20 13:27 Last Admin: 09/21/20 13:12 Dose: 100 mls/hr Documented by: Gentamicin Sulfate 380 mg/ (Sodium Chloride) 109.5 mls @ 109.5 mls/hr IV ONETIME ONE Stop: 09/21/20 14:29 Last Admin: 09/21/20 13:57 Dose: 109.5 mls/hr Documented by: Miscellaneous Medication (Phenylephrine Hcl In 0.9% Nacl 1 Mg/10 Ml Syringe) 0.1 mg IVPUSH Q10M PRN PRN Reason: Hypotension Nalbuphine HCl (Nalbuphine 10 Mg/1 Ml Vial) 10 mg IVPUSH Q2H PRN PRN Reason: Pain Ondansetron HCl (Ondansetron 4 Mg/2 Ml Sdv) 4 mg IVPUSH ONETIME PRN PRN Reason: Nausea/Vomiting Last Admin: 09/21/20 11:55 Dose: 4 mg Documented by: Sodium Chloride (Sodium Chloride 0.9% 10 Ml Syringe) 10 ml FLUSH ASDIRECTED PRN PRN Reason: Keep Vein Open
== END 2020-09-23 12:50 | disposition home or self-care (01) | DRG 560 ==
LOC: JD.OBCHECK 00:12 → JD.OB 00:20 → JD.OBCHECK 00:56 → JD.OB 03:22 → OBSVTOIN 18:13 → JD.OB 18:14
PROVIDERS: ADMIT Obstetrics & Gynecology; ATTEND Obstetrics & Gynecology
PROC: 10E0XZZ Delivery of Products of Conception, External Approach (ICD-10-PCS; principal; 2020-09-21)
PROC: 10907ZC Drainage of Amniotic Fluid, Therapeutic from Products of Conception, Via Natural or Artificial Opening (ICD-10-PCS; 2020-09-21)
PROC: 0KQM0ZZ Repair Perineum Muscle, Open Approach (ICD-10-PCS; 2020-09-21)
PROC: 3E0R3BZ Introduction of Anesthetic Agent into Spinal Canal, Percutaneous Approach (ICD-10-PCS; 2020-09-21)
PROC: 10H07YZ Insertion of Other Device into Products of Conception, Via Natural or Artificial Opening (ICD-10-PCS; 2020-09-21)
DX: O48.0 Post-term pregnancy (principal); Z3A.40 40 weeks gestation of pregnancy; Z37.0 Single live birth; O70.1 Second degree perineal laceration during delivery; O76 Abnormality in fetal heart rate and rhythm complicating labor and delivery; O41.1230 Chorioamnionitis, third trimester, not applicable or unspecified; O34.13 Maternal care for benign tumor of corpus uteri, third trimester; Z88.1 Allergy status to other antibiotic agents; Z88.2 Allergy status to sulfonamides; O13.5 Gestational [pregnancy-induced] hypertension without significant proteinuria, complicating the puerperium; Z20.822 Contact with and (suspected) exposure to COVID-19
CPT/HCPCS: 01967; 36415; 51702; 59025; 59409; 85025; 86592; 86803; 86850; 86900; 86901; A9270-GY; J0690; J1580; J2405; J2590; J3010; J3490; J7120; U0002